=== PATIENT | male | born 1980 | race Caucasian/White ===

== ENCOUNTER 2020-04-17 18:29 | Outpatient (REF) | payer OTHER, SELFPAY ==
[2020-04-17 21:12] LABS: HCT 42.8 % (40.0-50.0); HGB 14.7 g/dL (13.5-17.5); MCHC 34.3 % (32.0-36.0); MPV 11.4 fL (8.0-11.0); RBC 4.46 10^6/uL (4.36-5.78); RDW 11.7 % (11.8-14.1); WBC 6.14 10^3/uL (4.4-10.8)
[2020-04-17 21:35] LABS: Platelet Count 79 10^3/uL (130-400)
[2020-04-17 21:38] LABS: ALT 145 U/L (16-63); AST 68 U/L (15-37); Albumin 4.1 g/dL (3.4-5.0); Alkaline Phosphatase 79 U/L (46-116); Anion Gap 8.1 mmol/L (3-11); BUN 18 mg/dL (7-18); Bilirubin, Total 0.2 mg/dL (0.2-1.0); CO2 28.9 mmol/L (21.0-32.0); CREATININE 1.13 mg/dL (0.70-1.30); Chloride 105 mmol/L (98-107); Cholesterol 252 mg/dL (<200); Glucose 110 mg/dL (74-106); HDL Cholesterol 32 mg/dL (40-60); Potassium 4.2 mmol/L (3.5-5.1); Sodium 142 mmol/L (136-145); Total Protein 7.3 g/dL (6.4-8.2); Triglyceride 529 mg/dL (<150)
[2020-04-17 21:48] LABS: LDL CHOLESTEROL 150 mg/dL (<100)
[2020-04-17 21:53] LABS: Hemoglobin A1C 5.9 % (<5.7)
== END 2020-04-17 18:49 ==
LOC: NCHCN 18:29
PROVIDERS: PCP Nurse Practitioner Family; Visit Provider Family Medicine
DX: Z00.00 Encounter for general adult medical examination without abnormal findings (principal); R73.01 Impaired fasting glucose; I10 Essential (primary) hypertension; D69.6 Thrombocytopenia, unspecified
CPT/HCPCS: 80053; 80061; 83721; 85027; 83036

== ENCOUNTER 2021-10-22 18:07 | Outpatient (REF) | payer OTHER, SELFPAY ==
[2021-10-22 20:38] LABS: Hemoglobin A1C 5.9 % (<5.7)
[2021-10-22 20:42] LABS: ALT 65 U/L (16-63); AST 32 U/L (15-37); Albumin 4.4 g/dL (3.4-5.0); Alkaline Phosphatase 82 U/L (46-116); Anion Gap 9.1 mmol/L (3-11); BUN 15 mg/dL (7-18); Bilirubin, Total 0.3 mg/dL (0.2-1.0); CO2 28.9 mmol/L (21.0-32.0); CREATININE 0.9 mg/dL (0.70-1.30); Calcium 8.7 mg/dL (8.5-10.1); Calculated LDL 158 mg/dL (<100); Chloride 102 mmol/L (98-107); Cholesterol 249 mg/dL (<200); Glucose 106 mg/dL (74-106); HDL Cholesterol 46 mg/dL (40-60); Potassium 3.6 mmol/L (3.5-5.1); Sodium 140 mmol/L (136-145); Total Protein 7.5 g/dL (6.4-8.2); Triglyceride 228 mg/dL (<150)
== END 2021-10-22 18:08 | disposition home or self-care (01) ==
LOC: NCHCN 18:07
PROVIDERS: PCP Nurse Practitioner Family; Visit Provider Registered Nurse
DX: I10 Essential (primary) hypertension (principal); R73.03 Prediabetes; E78.5 Hyperlipidemia, unspecified; K85.90 Acute pancreatitis without necrosis or infection, unspecified; K85.20 Alcohol induced acute pancreatitis without necrosis or infection
CPT/HCPCS: 80053; 80061; 83036

== ENCOUNTER 2023-08-16 18:09 | Outpatient (REF) | payer SELFPAY ==
[2023-08-16 21:02] LABS: HCT 45.3 % (40.0-50.0); HGB 16.1 g/dL (13.5-17.5); MCH 33.8 pg (27.0-33.0); MCHC 35.5 % (32.0-36.0); MCV 95 fL (80-95); MPV 11.2 fL (8.0-11.0); RBC 4.77 10^6/uL (4.36-5.78); RDW 11.2 % (11.8-14.1); RDW-SD 39.2 fL; WBC 6.25 10^3/uL (4.4-10.8)
[2023-08-16 21:16] LABS: Platelet Count 89 10^3/uL (130-400)
[2023-08-16 21:19] LABS: ALT 171 U/L (16-63); AST 96 U/L (15-37); Albumin 4.3 g/dL (3.4-5.0); Alkaline Phosphatase 74 U/L (46-116); Anion Gap 12.2 mmol/L (3-11); BUN 9 mg/dL (7-18); Bilirubin, Total 0.8 mg/dL (0.2-1.0); CO2 27.8 mmol/L (21.0-32.0); CREATININE 0.9 mg/dL (0.70-1.30); Calcium 9.6 mg/dL (8.5-10.1); Calculated LDL 170 mg/dL (<100); Chloride 103 mmol/L (98-107); Cholesterol 257 mg/dL (<200); Estimated GFR 108.68 (mL/min/1.73m2); Glucose 137 mg/dL (74-106); HDL Cholesterol 63 mg/dL (40-60); Potassium 3.8 mmol/L (3.5-5.1); Sodium 143 mmol/L (136-145); Triglyceride 122 mg/dL (<150)
[2023-08-16 21:37] LABS: Hemoglobin A1C 5.6 % (<5.7)
== END 2023-08-16 18:10 | disposition home or self-care (01) ==
LOC: NCHCN 18:09
PROVIDERS: PCP Nurse Practitioner Family; Referring Provider Family Medicine; Visit Provider Family Medicine
DX: I10 Essential (primary) hypertension (principal); R73.03 Prediabetes; R53.83 Other fatigue
CPT/HCPCS: 80053; 80061; 85027; 83036